=== PATIENT | female | born 2000 | race Caucasian/White ===

== ENCOUNTER 2022-02-15 20:55 | Emergency (ER) | payer OTHER ==
[2022-02-15] MEDS ORDERED: Diazepam 5 MG TAB ONE (21:34)
[2022-02-15 21:53] LABS: #Eosinphils 0.1 thou/uL (0.0-0.7); #Lymphocytes 1.6 thou/uL (1.20-3.40); #Monocytes 0.3 thou/uL (0.11-0.59); #Neutrophils 2.9 thou/uL (1.40-6.50); %Basophils 0.1 % (0.0-1.0); %Eosinophils 1.2 % (0.0-10.0); %Lymphocytes 32.2 % (28.0-48.0); %Monocytes 6.8 % (0.0-4.0); %Neutrophils 59.7 % (31.0-61.0); Hemoglobin 13.4 g/dL (12.0-16.0); Mean Corpuscular HGB CONC 34.1 g/dL (32.0-36.0); Mean Corpuscular Hemoglobin 31.9 pg (25.0-35.0); Mean Corpuscular Volume 93.6 fL (78.0-98.0); Mean Platelet Volume 7.5 fL (7.4-10.4); Platelet Count 254 thou/uL (130-400); RBC Distribution Width 12.4 % (11.5-14.5); White Blood Cell (WBC) Count 4.8 thou/uL (4.8-10.8)
[2022-02-15] MEDS ORDERED: Famotidine 20 MG TAB ONE (21:57)
[2022-02-15] MEDS ORDERED: Mag-Al 1200 mg/1200 mg/30 ML UDCUP ONE (21:57)
[2022-02-15] MEDS ORDERED: Lidocaine Viscous Sol 2% 15 ml UD Cup ONE (21:57)
[2022-02-15] MEDS ORDERED: Ondansetron ODT 4 MG TAB ONE (22:12)
[2022-02-15 22:19] LABS: ALT (SGPT) 14 U/L (8-55); AST (SGOT) 18 U/L (5-30); Albumin 4.6 g/dL (3.5-5.0); Alkaline Phosphatase 56 U/L (40-100); Anion Gap 13 mmol/L (10-20); BUN (Urea Nitrogen) 4 mg/dL (8.4-21.0); Bilirubin, Total 0.4 mg/dL (0.2-1.2); Calc. Creatinine Clearance 0 mL/min (70-130); Calcium 8.7 mg/dL (7.8-10.44); Carbon Dioxide 21 mmol/L (22-29); Chloride 110 mmol/L (98-107); Estimated GFR 129; Globulin 2.1 g/dL (2.4-3.5); Glucose 94 mg/dL (70-105); Lipase 25 U/L (8-78); Potassium 4.1 mmol/L (3.5-5.1); Protein, Total 6.6 g/dL (6.0-8.3); Sodium 140 mmol/L (136-145)
[2022-02-15] MEDS ORDERED: clonazePAM 1 MG TAB ONE (23:02)
== END 2022-02-15 23:37 | disposition home or self-care (01) ==
LOC: ERS 20:55
DX: R07.9 Chest pain, unspecified (principal); K29.70 Gastritis, unspecified, without bleeding
CPT/HCPCS: 36415; 71045; 80053; 83690; 84484; 85025; 93005; Q0162

== ENCOUNTER 2023-05-15 02:40 | Emergency (ER) | payer OTHER | END 2023-05-15 03:58 | disposition short-term general hospital (02) | LOC: ERS 02:40 | DX: T74.21XA Adult sexual abuse, confirmed, initial encounter (principal) | CPT/HCPCS: 99285 ==